=== PATIENT | female | born 1950 | race Caucasian/White ===

== ENCOUNTER 2017-01-16 09:04 | Emergency (ER) | payer OTHER, MEDICAID ==
[~2017-01-16] VITALS: Ht 154.9 cm; Wt 72.5 kg
[2017-01-16 09:14] VITALS: Ht 154.9 cm; Wt 72.5 kg
[2017-01-16] MEDS ORDERED: ONDANSETRON 4 MG INJ IV STA (09:30)
[2017-01-16] MEDS ORDERED: morphine 4 MG/ML VIAL IV STA (09:30)
[2017-01-16 09:47] LABS: ADD SCAN DIFF NO
--- NOTE | 2017-01-16 10:00 | RADRPT ---
PROCEDURE: CT of the abdomen and pelvis without contrast CLINICAL INDICATION: Abdominal pain and diarrhea. TECHNIQUE: Spiral CT images through the abdomen and pelvis without the use of contrast. The admin istered radiation dose is CTDI 12.6 and DLP 681.07. One or more of the following dose reduction kady hniques were used: automated exposure control, adjustment of the mA and/or kV according to patient s ize, or use of iterative reconstruction technique. COMPARISON: None FINDINGS: Lack of oral and intravenous contrast somewhat limits evaluation. Slight dependent atelectasis of the lung bases is seen. No pleural effusion is seen. 1.3 cm calcified gallstone is seen. Aortic calcification is seen. Noncontrast imaging of the liver, spleen, adrenals, kidneys, and panc reas is unremarkable. Fat-containing umbilical hernia is seen with slight stranding. Moderate colo delmi stool burden.. . There is no evidence for bowel obstruction, free air, or abscess. The append ix is normal in appearance. there is colonic diverticulosis without definite evidence of focal dive rticulitis. There is, however, a suggestion of mild wall thickening and pericolonic fat stranding i nvolving the distal descending colon and proximal sigmoid colon. No adenopathy or ascites is seen. The uterus, adnexa, and urinary bladder are unremarkable in appearance. There is mild degenerative change of the spine. IMPRESSION: 1. Probable wall thickening of the descending and proximal sigmoid colon with mild adjacent fat str anding. This is not centered about a diverticulum. The appearance is most likely due to infectious colitis. Ischemic colitis is less likely given the location. No definite free air or abscess. 2. Fat-containing umbilical hernia with slight fat stranding. 3. Calcified gallstone. RPTAT: [facility] Physician Lawson Date Time Electronically viewed and signed by Physician Lawson on 01/16/2017 10:00 LE/
[2017-01-16 10:04] LABS: ALANINE AMINOTRANSFERASE 39 IU/L (13-69); ALBUMIN 3.9 g/dl (3.3-4.9); ALBUMIN/GLOBULIN RATIO 1.08; ALKALINE PHOSPHATASE 65 IU/L (42-121); ANION GAP 8 (8-16); ASPARTATE AMINO TRANSFERASE 38 IU/L (15-46); BILIRUBIN,INDIRECT 0.4 mg/dl (0-1.1); BILIRUBIN,TOTAL 0.4 mg/dl (0.2-1.3); BLOOD UREA NITROGEN 22 mg/dl (7-20); CALCIUM 9.2 mg/dl (8.4-10.2); CARBON DIOXIDE 30 mmol/L (21-31); CHLORIDE 107 mmol/L (97-110); CREATININE 0.79 mg/dl (0.44-1.00); GLUCOSE 112 mg/dl (70-220); POTASSIUM 4.5 mmol/L (3.5-5.1); SODIUM 140 mmol/L (135-144); TOTAL PROTEIN 7.5 g/dl (6.1-8.1)
[2017-01-16 10:14] LABS: INR 0.95; PARTIAL THROMBOPLASTIN TIME 30.1 Sec (25.0-35.0); PROTIME 12.7 Sec (12.2-14.2)
[2017-01-16 10:17] LABS: TROPONIN-I < 0.012 ng/ml (0.00-0.12)
[2017-01-16] MEDS ORDERED: DICL75TA2 PO (10:53)
[2017-01-16 11:09] LABS: BASOPHIL # 0.1 10^3/ul (0.0-0.1); BASOPHILS % 0.5 % (0.0-2.0); EOSINOPHILS # 0.1 10^3/ul (0.0-0.5); EOSINOPHILS % 0.7 % (0.0-7.0); HEMATOCRIT 34.7 % (37.0-47.0); HEMOGLOBIN 11.2 g/dl (12.0-16.0); LYMPHOCYTES # 1.8 10^3/ul (0.8-2.9); LYMPHOCYTES % 18.4 % (15.0-51.0); MEAN CORPUSCULAR HEMOGLOBIN 27.2 pg (29.0-33.0); MEAN CORPUSCULAR HGB CONC 32.3 g/dl (32.0-37.0); MEAN CORPUSCULAR VOLUME 84.2 fl (82.0-101.0); MEAN PLATELET VOLUME 10.3 fl (7.4-10.4); MONOCYTE # 0.6 10^3/ul (0.3-0.9); NEUTROPHILS % 74.1 % (39.0-77.0); PLATELET COUNT 269 10^3/UL (140-415); RED BLOOD COUNT 4.12 10^6/ul (4.20-5.40); RED CELL DISTRIBUTION WIDTH 15.6 % (11.5-14.5); WHITE BLOOD COUNT 9.5 10^3/ul (4.8-10.8)
[2017-01-16] MEDS ORDERED: CIPR500T4 PO (11:53)
[2017-01-16] MEDS ORDERED: HYDR-902 PO (11:53)
[2017-01-16] MEDS ORDERED: ONDA4TAB14 PO (11:53)
[2017-01-16] MEDS ORDERED: METR500T PO (11:53)
--- NOTE | 2017-01-16 11:56 | ERD ---
ER Documentation Chief Complaint Date/Time DATE: 01/16/17 TIME: 11:56 Chief Complaint BLOOD IN STOOL W/AP THIS AM HPI Patient is a 67-year-old female with hypertension who presents with abdominal pain and diarrhea. She said the symptoms started yesterday. The symptoms come and go. Today she noticed blood in the toilet bowl. She takes 81 mg aspirin but no other blood thinners. She has diffuse abdominal pain. She has had no treatment as of yet. ROS All systems reviewed and are negative except as per history of present illness. Medications Home Meds Active Scripts Ondansetron (Ondansetron Odt) 4 Mg Tab.rapdis, 4 MG PO Q6H Y for NAUSEA AND/OR VOMITING, #30 TAB Prov:CHEYENNE TRINIDAD MD 01/16/17 Hydrocodone/Acetaminophen ([place] 10-325 Tablet) 1 Each Tablet, 1 TAB PO Q6H Y for PAIN, #7 TAB Prov:CHEYENNE TRINIDAD MD 01/16/17 Metronidazole* (Flagyl*) 500 Mg Tablet, 500 MG PO TID for 7 Days, TAB Prov:CHEYENNE TRINIDAD MD 01/16/17 Ciprofloxacin Hcl* (Ciprofloxacin Hcl*) 500 Mg Tablet, 500 MG PO BID for 7 Days , TAB Prov:CHEYENNE TRINIDAD MD 01/16/17 Reported Medications Diclofenac Sodium* (Diclofenac Sodium*) 75 Mg Tablet.dr, 75 MG PO QHS, #60 TAB 01/16/17 Allergies Allergies: Coded Allergies: No Known Allergy (Unverified , 01/16/17) PMhx/Soc Positive for hypertension Medical and Surgical Hx: Unable to obtain Hx Alcohol Use: No Hx Substance Use: No Hx Tobacco Use: No Smoking Status: Never smoker FmHx Family History: diabetes Physical Exam Vitals Vital Signs Date Time Temp Pulse Resp B/P Pulse Ox O2 Delivery O2 Flow Rate FiO2 01/16/17 12:05 56 19 137/60 98 Room Air 01/16/17 09:29 Nasal Cannula 2 01/16/17 09:14 97.1 61 18 176/79 99 Physical Exam Const: [] Head: Atraumatic Eyes: Normal Conjunctiva ENT: Normal External Ears, Nose and Mouth. Neck: Full range of motion..~ No meningismus. Resp: Clear to auscultation bilaterally Cardio: Regular rate and rhythm, no murmurs Abd: Soft, non tender, non distended. Normal bowel sounds Skin: No petechiae or rashes Back: No midline or flank tenderness Ext: No cyanosis, or edema Neur: Awake and alert Psych: Normal Mood and Affect Result Diagram: 01/16/1793701/16/17937 Results 24 hrs Laboratory Tests Test 01/16/17 09:38 White Blood Count 9.510^3/ul Red Blood Count 4.1210^6/ul Hemoglobin 11.2g/dl Hematocrit 34.7% Mean Corpuscular Volume 84.2fl Mean Corpuscular Hemoglobin 27.2pg Mean Corpuscular Hemoglobin Concent 32.3g/dl Red Cell Distribution Width 15.6% Platelet Count 44786^3/UL Mean Platelet Volume 10.3fl Neutrophils % 74.1% Lymphocytes % 18.4% Monocytes % 6.0% Eosinophils % 0.7% Basophils % 0.5% Nucleated Red Blood Cells % 0.0/100WBC Neutrophils # 7.010^3/ul Lymphocytes # 1.810^3/ul Monocytes # 0.610^3/ul Eosinophils # 0.110^3/ul Basophils # 0.110^3/ul Nucleated Red Blood Cells # 0.010^3/ul Prothrombin Time 12.7Sec Prothrombin Time Ratio 1.0 INR International Normalized Ratio 0.95 Activated Partial Thromboplast Time 30.1Sec Sodium Level 140mmol/L Potassium Level 4.5mmol/L Chloride Level 107mmol/L Carbon Dioxide Level 30mmol/L Anion Gap 8 Blood Urea Nitrogen 22mg/dl Creatinine 0.79mg/dl Glucose Level 112mg/dl Calcium Level 9.2mg/dl Total Bilirubin 0.4mg/dl Direct Bilirubin 0.00mg/dl Indirect Bilirubin 0.4mg/dl Aspartate Amino Transf (AST/SGOT) 38IU/L Alanine Aminotransferase (ALT/SGPT) 39IU/L Alkaline Phosphatase 65IU/L Troponin I < 0.012ng/ml Total Protein 7.5g/dl Albumin 3.9g/dl Globulin 3.60g/dl Albumin/Globulin Ratio 1.08 Current Medications Medications (Trade) Dose Ordered Sig/Lora Route PRN Reason Start Time Stop Time Status Last Admin Dose Admin Morphine Sulfate (morphine) 4 mg ONCE STAT IV 01/16/17 09:30 01/16/17 09:31 DC 01/16/17 10:17 Ondansetron HCl (Zofran Inj) 4 mg ONCE STAT IV 01/16/17 09:30 01/16/17 09:31 DC 01/16/17 10:17 Procedures/MDM EKG read by me: Rate/Rhythm: Sinus bradycardia rate of 52 Intervals: Normal Impression: Sinus bradycardia without ischemia PROCEDURE: CT of the abdomen and pelvis without contrast CLINICAL INDICATION: Abdominal pain and diarrhea. TECHNIQUE: Spiral CT images through the abdomen and pelvis without the use of contrast. The administered radiation dose is CTDI 12.6 and DLP 681.07. One or more of the following dose reduction techniques were used: automated exposure control, adjustment of the mA and/or kV according to patient size, or use of iterative reconstruction technique. COMPARISON: None FINDINGS: Lack of oral and intravenous contrast somewhat limits evaluation. Slight dependent atelectasis of the lung bases is seen. No pleural effusion is seen. 1.3 cm calcified gallstone is seen. Aortic calcification is seen. Noncontrast imaging of the liver, spleen, adrenals, kidneys, and pancreas is unremarkable. Fat-containing umbilical hernia is seen with slight stranding. Moderate colonic stool burden.. . There is no evidence for bowel obstruction, free air, or abscess. The appendix is normal in appearance. there is colonic diverticulosis without definite evidence of focal diverticulitis. There is, however, a suggestion of mild wall thickening and pericolonic fat stranding involving the distal descending colon and proximal sigmoid colon. No adenopathy or ascites is seen. The uterus, adnexa, and urinary bladder are unremarkable in appearance. There is mild degenerative change of the spine. IMPRESSION: 1. Probable wall thickening of the descending and proximal sigmoid colon with mild adjacent fat stranding. This is not centered about a diverticulum. The appearance is most likely due to infectious colitis. Ischemic colitis is less likely given the location. No definite free air or abscess. 2. Fat-containing umbilical hernia with slight fat stranding. 3. Calcified gallstone. RPTAT: [facility] Physician Lawson Date Time Electronically viewed and signed by Physician Lawson on 01/16/2017 10 :00 Patient is a 59-year-old female with hypertension who presents with abdominal pain and bloody stool. She was found to have acute colitis on her CT scan. However she is otherwise very well-appearing. She is smiling and happy in the emergency department. At this point I do not feel the patient requires admission to the hospital this time. I believe outpatient management is appropriate. I will give a prescription for Cipro, Flagyl, [place], and Zofran. The patient will need to follow-up closely with her primary doctor Dr. Jesus within 24 hours for reevaluation. I told her that she can return for any worsening symptoms. She does not require transfusion of blood product at this time. Departure Diagnosis: Primary Impression: Colitis Additional Impression: Rectal hemorrhage Condition: Fair Patient Instructions: Diverticulitis, Rectal Bleed, Stable Referrals: SALVATORE JESUS MD Additional Instructions: Visite a anderson judith ponce para un EXAMEN.Regrese a estas instalaciones si no se mejora clarence esperbamos o clarence le richards. CHEYENNE TRINIDAD MD Jan 16, 2017 11:56
[2017-01-16 12:05] VITALS: BP 137/60; PULSE 56; RESP 19
== END 2017-01-16 12:13 | disposition home or self-care (01) ==
LOC: E/R 09:04
DX: K52.9 Noninfective gastroenteritis and colitis, unspecified (principal); K62.5 Hemorrhage of anus and rectum; I10 Essential (primary) hypertension
CPT/HCPCS: 36415; 74176; 80053; 84484; 85025; 85610; 85730; 86850; 86900; 86901; 93005; 96374; 96375; 99285; J2270; J2405